=== PATIENT | female | born 1985 | race African-American/Black ===

== ENCOUNTER 2017-02-22 11:52 | Emergency (ER) | payer OTHER ==
--- NOTE | 2017-02-22 12:23 | ED Physician Documentation ---
Low Back Pain - HISTORIAN Historian: patient - HPI Stated Complaint: low back pain Chief Complaint: Low Back Pain/ Injury History: history of chronic pain:, back pain Onset: other (This am ) Duration: continues in ED Recent Injury: No Context: turning. denies: fall, trauma Where: home Severity: moderate Quality: sharp Associated Symptoms: problems urinating, difficulty walking. denies: fever, chills, nausea, vomiting Worsened By:: other (walking ) Relieved By: nothing Further Comments: yes (She states this am she went to roll over and she lifted her leg and she noticed sharp pain. She states that she did have two episodes where she was trying to get to the restroom and lost control of her bladder. She states that she has not had any new injury. She states she has been seen by the ortho for pain and she is on a current treatment. She states the pain with movement her pain is 15 on 1/10 scale. She states when she lays flat she has pain that is 6-7 on 1/10 scale. She does note some burning with urination. Denies any blood in her urine. She states with lifting her legs is when the pain is the worst.) - ROS CONST: no problems MS/SKIN/LYMPH: none Neuro/Psych: none - PAST HX Past History: arthritis, back injury Surgeries/Procedures: none Immunizations: UTD Allergies/Adverse Reactions: Allergies Allergy/AdvReac Type Severity Reaction Status Date / Time sulfamethoxazole Allergy Verified 02/22/17 12:19 [From Bactrim] trimethoprim [From Bactrim] Allergy Verified 02/22/17 12:19 Home Medications: Ambulatory Orders Medication Instructions Recorded Methocarbamol [Methocarbamol] 750 mg PO TID PRN 02/22/17 - SOCIAL HX Smoking History: cigarettes Alcohol Use: none Drug Use: none - FAMILY HX Family History: none - VITAL SIGNS Vital Signs: Vital Signs Temp Pulse Resp BP Pulse Ox 98.4 F 67 26 H 147/86 97 02/22/17 12:09 02/22/17 12:09 02/22/17 12:09 02/22/17 12:09 02/22/17 12:09 - REVIEWED ASSESSMENTS Nursing Assessment Reviewed: Yes Vitals Reviewed: Yes Progress - Progress Progress: 1311: She states "the edge is taken off the pain" She reports pain is still 5-6 on 1/10 scale with movement but "better" with laying still. DG ED Results Lab/Radiology - Radiology Radiology Impressions: Lumbar spine, AP and lateral History: Back pain Findings: No fracture, subluxation or abnormal bone production or destruction is identified. The vertebral bodies and intervertebral disc spaces are of normal height. Impression: Normal. Electronically signed on Feb 22, 2017 1:25:10 PM [employer] by: Markus Reinoso Thoracic spine, AP, lateral and swimmer's views History: Back pain, injury Findings: No fracture, subluxation or abnormal bone production or destruction is identified. The vertebral bodies and intervertebral disc spaces are of normal height. Impression: Normal. Electronically signed on Feb 22, 2017 1:27:06 PM [employer] by: Markus Reinoso - Orders Orders: ED Orders Category Date Time Status Place IV Lock 1T Care 02/22/17 12:18 Active LUMBAR SPINE XR 2 OR 3 VIEWS [L SPINE 2 OR 3 VIEWS] [ Exams 02/22/17 Taken RAD] Stat T SPINE 3 VIEWS [RAD] Stat Exams 02/22/17 Taken UA W/MICRO IF INDICATED Routine Lab 02/22/17 12:19 Ordered fentaNYL CITRATE/PF [Duragesic] Med 02/22/17 12:18 Discontinued 50 mcg IVP NOW ONE Low Back Pain/Injury - Physical Exam General Appearance: moderate distress EENT: eye inspection normal Neck: non-tender, other (she does have an obvious goiter ) Resp/CVS: chest non-tender, breath sounds nml, heart sounds nml, no resp. distress, lungs clear, reg. rate & rhythm Abdomen: non-tender, other (bladder tenderness ) Back: other (She denies pain with palpation. SHe does however report pain with leg movement that moves down her hips bilaterally ) Neuro/Psych: oriented x3, motor nml, sensation nml Skin: warm/dry, normal color Extremities: non-tender, normal range of motion Discharge Clincal Impression: Low back pain Qualifiers: Chronicity: chronic Back pain laterality: bilateral Sciatica presence: without sciatica Qualified Code(s): M54.5 - Low back pain; G89.29 - Other chronic pain; G89.29 - Other chronic pain Referrals: Franco Carrasco MD [Primary Care Provider] - 2 Days Additional Instructions: Tizanidine 2 mg take as directed for muscle pain Ibuprofen as directed for pain Ice/heat Follow up with Ortho RAUL Follow up with PCP in 2-3 days Return for any increase in symptoms Condition: Stable Disposition: 01 HOME, SELF-CARE Decision to Admit: NO Date of Decison to Admit: 02/22/17 Decision Time: 13:58
[2017-02-22] MEDS: fentaNYL CITRATE/PF 100 MCG/ 2ML AMP IVP ONE (12:30)
[2017-02-22 14:09] VITALS: BP 128/81
--- NOTE | 2017-02-22 14:17 | Diagnostic Imaging Report ---
ELENO JONES [facility] [address] [facility] [address] [address] Report Submission Date: Feb 22, 2017 1:25:10 PM [employer] Patient Study Name: EDGAR HERNANDEZ Date: Feb 22, 2017 12:44:04 PM [employer] Modality Type: CR Gender: F Description: SPINE : 87 Institution: [facility] Physician: ELENO JONES Lumbar spine, AP and lateral History: Back pain Findings: No fracture, subluxation or abnormal bone production or destruction is identified. The vertebral bodies and intervertebral disc spaces are of normal height. Impression: Normal. Electronically signed on Feb 22, 2017 1:25:10 PM [employer] by: Markus CONLEY
--- NOTE | 2017-02-22 14:18 | Diagnostic Imaging Report ---
ELENO JONES [facility] [address] [facility] [address] [address] Report Submission Date: Feb 22, 2017 1:27:06 PM DENTAL SCHEDULING COORDINATOR Patient Study Name: EDGAR HERNANDEZ Date: Feb 22, 2017 12:46:13 PM DENTAL SCHEDULING COORDINATOR Modality Type: CR Gender: F Description: SPINE : 87 Institution: [facility] Physician: ELENO JONES Thoracic spine, AP, lateral and swimmer's views History: Back pain, injury Findings: No fracture, subluxation or abnormal bone production or destruction is identified. The vertebral bodies and intervertebral disc spaces are of normal height. Impression: Normal. Electronically signed on Feb 22, 2017 1:27:06 PM DENTAL SCHEDULING COORDINATOR by: Markus CONLEY
[2017-02-22 19:25] LABS: APPEARANCE,URINE CLEAR (CLEAR); COLOR,URINE YELLOW (YELLOW); OCCULT BLOOD,URINE NEGATIVE (NEGATIVE)
[2017-02-22 19:26] LABS: PH URINE 8.5 (5.0 - 8.0); UROBILINOGEN URINE 0.2 Eu (0.2-1.0)
== END 2017-02-22 14:08 | disposition home or self-care (01) ==
LOC: ED 11:52
DX: M54.5 Low back pain (principal); G89.29 Other chronic pain
CPT/HCPCS: 72072; 72100; 81002; 96374; 99283; J3010; S1016

== ENCOUNTER 2017-05-25 08:01 | Outpatient (CLI) | payer OTHER ==
--- NOTE | 2017-05-25 08:51 | Diagnostic Imaging Report ---
SHARI CODY [facility] [address] [facility] [address] [address] Report Submission Date: May 25, 2017 8:46:52 AM CDT Patient Study Name: EDGAR HERNANDEZ Date: May 25, 2017 8:10:21 AM CDT Modality Type: DX Gender: F Description: LOWER EXTREMITY : 87 Institution: [facility] Physician: SHARI CODY Examination: Plain film left knee History: CHRONIC PAIN (Hx) Findings: 3 views of the left knee demonstrates normal cortical margins. No fracture. No dislocation. No joint effusion. No soft tissue irregularity. Impression: No acute osseous abnormality Electronically signed on May 25, 2017 8:46:52 AM CDT by: Vaibhav CONLEY
--- NOTE | 2017-05-25 08:52 | Diagnostic Imaging Report ---
SHARI CODY [facility] [address] [facility] [address] [address] Report Submission Date: May 25, 2017 8:47:21 AM CDT Patient Study Name: EDGAR HERANNDEZ Date: May 25, 2017 8:13:03 AM CDT Modality Type: DX Gender: F Description: LOWER EXTREMITY : 87 Institution: [facility] Physician: SHARI CODY Examination: Plain film right knee History: CHRONIC PAIN (Hx) Findings: 3 views of the right knee demonstrates normal cortical margins. No fracture. No dislocation. No joint effusion. No soft tissue irregularity. Impression: No acute osseous abnormality Electronically signed on May 25, 2017 8:47:21 AM CDT by: Vaibhav CONLEY
== END 2017-05-25 08:02 ==
LOC: RAD 08:01
PROVIDERS: ATTEND Family Medicine
DX: M25.561 Pain in right knee (principal); M25.562 Pain in left knee; G89.29 Other chronic pain
CPT/HCPCS: 73562

== ENCOUNTER 2018-11-11 21:59 | Emergency (ER) | payer OTHER ==
--- NOTE | 2018-11-11 22:20 | ED Physician Documentation ---
General Adult - HISTORIAN Historian: patient - HPI Stated Complaint: left shoulder pain Chief Complaint: General Adult Additional Information: Patient presents to ER with left shoulder pain radiating into her neck. Patient states she works overnights. This morning when she got off work she slept on the couch most of the day. Upon rising she noticed her left shoulder hurt. She went to work tonight and the pain was worse, radiating to her neck. She denies any injury. Onset: hours (8) Timing: still present Severity: mild - ROS CONST: no problems EYES/ENT: none CVS/RESP: none GI/: none MS/SKIN/LYMPH: none NEURO/PSYCH: denies: headache - PAST HX Past History: none Other History: none Surgeries/Procedures: none Allergies/Adverse Reactions: Allergies Allergy/AdvReac Type Severity Reaction Status Date / Time sulfamethoxazole Allergy Verified 02/22/17 12:19 [From Bactrim] trimethoprim [From Bactrim] Allergy Verified 02/22/17 12:19 Home Medications: Ambulatory Orders Medication Instructions Recorded Methocarbamol 750 mg PO TID PRN 02/22/17 - SOCIAL HX Smoking History: non-smoker Alcohol Use: none Drug Use: none - FAMILY HX Family History: No - VITAL SIGNS Vital Signs: Vital Signs Temp Pulse Resp BP Pulse Ox 128/81 02/22/17 14:08 - REVIEWED ASSESSMENTS Nursing Assessment Reviewed: Yes Vitals Reviewed: Yes General Adult Physical Exam - PHYSICAL EXAM GENERAL APPEARANCE: no distress EENT: eye inspection normal NECK: normal inspection RESPIRATORY: no resp distress, chest non-tender, breath sounds normal CVS: reg rate & rhythm, heart sounds normal ABDOMEN: soft BACK: normal inspection SKIN: warm/dry EXTREMITIES: normal range of motion NEURO: oriented X3, mood/affect nml Discharge Clincal Impression: Musculoskeletal pain of left upper extremity Referrals: Franco Carrasco MD [Primary Care Provider] - 2 Days Additional Instructions: 1. Tylenol 650mg every 4 hours and/or Ibuprofen 600mg every 6 hours as needed for pain 2. Norflex every 12 hours as needed for muscle pain. 3. Stay active 4. Follow up with PCP within 1 week 5. Return to ER for new or worsening symptoms Condition: Stable Disposition: 01 HOME, SELF-CARE Decision to Admit: NO Date of Decison to Admit: 11/11/18 Decision Time: 22:24
[2018-11-11] MEDS: KETOROLAC TROMETHAMINE 60 MG/2 ML VIAL IM ONE (22:40)
[2018-11-11 22:55] VITALS: BP 132/68
== END 2018-11-11 22:50 | disposition home or self-care (01) ==
LOC: ED 21:59
DX: M79.622 Pain in left upper arm (principal)
CPT/HCPCS: 96372; 99284; J1885

== ENCOUNTER 2018-11-29 09:30 | Emergency (ER) | payer OTHER | END 2018-11-29 10:08 | disposition home or self-care (01) | LOC: ED 09:30 | DX: J01.90 Acute sinusitis, unspecified (principal) | CPT/HCPCS: 99283 ==